=== PATIENT | female | born 1960 ===

== ENCOUNTER 2018-02-18 08:07 | Day surgery (SDC) | payer MEDICAID ==
[2018-02-18] MEDS ORDERED: Lactated Ringer's 500 ML IV ONE (10:50)
[2018-02-18] MEDS ORDERED: Propofol 10 mg/ml Inj (20 ML) ONE (10:55)
== END 2018-02-18 15:10 | disposition home or self-care (01) ==
LOC: H.ENDO 08:07
PROVIDERS: ATTEND Internal Medicine Gastroenterology
DX: Z12.11 Encounter for screening for malignant neoplasm of colon (principal); K21.9 Gastro-esophageal reflux disease without esophagitis; E78.5 Hyperlipidemia, unspecified; K64.8 Other hemorrhoids; K29.70 Gastritis, unspecified, without bleeding
CPT/HCPCS: 43239; 45378; 88305; J2001; J2704; J7120